=== PATIENT | male | born 1960 | race African-American/Black ===

== ENCOUNTER 2023-12-11 13:59 | Emergency (ER) | payer MEDICARE ==
[~2023-12-11] VITALS: Ht 165.1 cm; Wt 75.6 kg
[2023-12-11] MEDS ORDERED: LOSA25TA13 PO (19:29)
[2023-12-11] MEDS ORDERED: AMBI5TAB PO (19:29)
[2023-12-11] MEDS ORDERED: SIMV40TA20 PO (19:29)
[2023-12-11] MEDS ORDERED: HYDR-3490 (19:29)
[2023-12-11] MEDS ORDERED: FLUO-290 PO (19:29)
[2023-12-11] MEDS ORDERED: ZOLP10TA2 PO (19:44)
[2023-12-11 19:55] VITALS: BP 126/89; TEMP 97.1; O2SAT 96
== END 2023-12-11 19:57 | disposition home or self-care (01) ==
LOC: M ED 13:59
DX: Z76.0 Encounter for issue of repeat prescription (principal); I10 Essential (primary) hypertension; E78.5 Hyperlipidemia, unspecified; F10.10 Alcohol abuse, uncomplicated; Z91.041 Radiographic dye allergy status; Z88.6 Allergy status to analgesic agent; Z79.811 Long term (current) use of aromatase inhibitors; Z79.899 Other long term (current) drug therapy

== ENCOUNTER → 2024-01-30 | Outpatient (CLI) | payer MEDICARE ==
[~2024-01-30] MED LIST: AMBI5TAB PO; FLUO-290 PO; HYDR-3490; LOSA25TA13 PO; SIMV40TA20 PO; ZOLP10TA2 PO
== END ==
LOC: EDSEX 12:14 → M RAD 12:14
PROVIDERS: ATTEND Registered Nurse
DX: M25.511 Pain in right shoulder (principal)

== ENCOUNTER → 2024-02-09 | Outpatient (CLI) | payer MEDICARE ==
[2024-02-09 17:14] LABS: HEMATOCRIT 37.2 % (36.0-47.0); HEMOGLOBIN 11.9 g/dl (12.0-15.5); MEAN CORPUSCULAR HEMOGLOBIN 27.5 pg (27.0-33.0); MEAN CORPUSCULAR VOLUME 86.1 fl (80.0-96.0); PLATELET COUNT, AUTOMATED 268 10^3/uL (150-450); RED BLOOD COUNT 4.32 10^6/uL (4.00-5.40); WHITE BLOOD COUNT 5.7 10^3/uL (4.0-10.0)
[2024-02-09 17:34] LABS: ALBUMIN 3.8 G/DL (3.2-5.2); ALKALINE PHOSPHATASE 121 U/L (46-116); ALT/SGPT 23 U/L (7.0-40); AST/SGOT 21 U/L (<34); BILIRUBIN,TOTAL 0.4 MG/DL (0.3-1.2); BLOOD UREA NITROGEN 24 MG/DL (9-23); CALCIUM LEVEL 9.8 MG/DL (8.3-10.6); CARBON DIOXIDE LEVEL 30 MMOL/L (20-31); CHLORIDE LEVEL 104 MMOL/L (98-107); CREATININE FOR GFR 0.99 MG/DL (0.55-1.30); GLOMERULAR FILTRATION RATE > 60.0 (>45); GLUCOSE, FASTING 88 MG/DL (74-106); POTASSIUM SERUM 3.6 MMOL/L (3.5-5.1); SODIUM LEVEL 139 MMOL/L (136-145)
== END ==
LOC: M LAB 15:56
PROVIDERS: ATTEND Registered Nurse
DX: M54.2 Cervicalgia (principal); B53.8 Other malaria, not elsewhere classified

== ENCOUNTER → 2024-07-23 | Outpatient (CLI) | payer MEDICARE | LOC: M WHC 13:58 | PROVIDERS: ATTEND Registered Nurse | DX: Z12.31 Encounter for screening mammogram for malignant neoplasm of breast (principal); R92.333 Mammographic heterogeneous density, bilateral breasts | CPT/HCPCS: 77067; G0279 ==

== ENCOUNTER → 2024-08-06 | Outpatient (CLI) | payer MEDICARE | LOC: M WHC 09:31 | PROVIDERS: ATTEND Registered Nurse | DX: R92.8 Other abnormal and inconclusive findings on diagnostic imaging of breast (principal); R92.331 Mammographic heterogeneous density, right breast | CPT/HCPCS: 77065; G0279 ==